=== PATIENT | male | born 1935 | race Caucasian/White ===

== ENCOUNTER → 2018-05-20 | Outpatient (CLI) | payer OTHER | LOC: RAD 11:32 | DX: Z01.818 Encounter for other preprocedural examination (principal); J98.4 Other disorders of lung; I25.810 Atherosclerosis of coronary artery bypass graft(s) without angina pectoris; M47.814 Spondylosis without myelopathy or radiculopathy, thoracic region ==

== ENCOUNTER → 2020-05-15 | Outpatient (CLI) | payer OTHER | LOC: RAD 15:34 | PROVIDERS: ATTEND Family Medicine | DX: I48.21 Permanent atrial fibrillation (principal); M47.9 Spondylosis, unspecified ==